=== PATIENT | male | born 1985 ===

== ENCOUNTER 2017-05-25 18:03 | Emergency (ER) | payer BC ==
[2017-05-25 18:16] VITALS: BP 100/57; PULSE 78; RESP 20; TEMP 102.1; O2SAT 100
--- NOTE | 2017-05-25 19:55 | ED PDOC ---
HPI: CCC, URI, Sore Throat Time Seen by Provider: 05/25/17 19:49 Chief Complaint (Nursing): ENT Problem History Per: Patient (Sore throat and fever since last night. Denies cough or SOB. Able to swallow) Onset/Duration Of Symptoms: Days (1) Current Symptoms Are (Timing): Still Present Location Of Pain: Throat Associated Symptoms: Fever, Sore Throat. denies: Cough Severity: Moderate Pain Scale Rating Of: 3 Past Medical History Vital Signs: Last Vital Signs Temp 102.1 F H 05/25/17 18:12 Pulse 78 05/25/17 18:12 Resp 20 05/25/17 18:12 BP 100/57 L 05/25/17 18:12 Pulse Ox 100 05/25/17 18:12 - Medical History PMH: No Chronic Diseases - Family History Family History: States: Unknown Family Hx - Immunization History Hx Tetanus Toxoid Vaccination: No Hx Influenza Vaccination: No Hx Pneumococcal Vaccination: No - Home Medications Home Medications: Ambulatory Orders Medication Instructions Recorded Amoxicillin/Clavulanate [Augmentin 1 tab PO BID #20 tab 10/22/16 875 MG-125 MG] Amoxicillin/Potassium Clav 1 tab PO TID #30 tab 05/25/17 [Augmentin 500 mg-125 mg] Naproxen [Naprosyn] 500 mg PO Q12H #20 tab 05/25/17 - Allergies Allergies/Adverse Reactions: Allergies Allergy/AdvReac Type Severity Reaction Status Date / Time No Known Allergies Allergy Verified 05/25/17 18:12 Review of Systems Constitutional: Positive for: Fever ENT: Positive for: Throat Pain Respiratory: Negative for: Cough, Shortness of Breath Physical Exam - Physical Exam Appears: Positive for: Non-toxic, No Acute Distress Skin: Positive for: Normal Color, Warm, DRY ENT: Positive for: Pharyngeal Erythema, Tonsillar Swelling. Negative for: Tonsillar Exudate Neck: Positive for: Normal, Painless ROM Cardiovascular/Chest: Positive for: Regular Rate, Rhythm Respiratory: Positive for: CNT, Normal Breath Sounds Neurologic/Psych: Positive for: Alert, Oriented. Negative for: Motor/Sensory Deficits - ECG O2 Sat by Pulse Oximetry: 100 Disposition - Clinical Impression Clinical Impression: Tonsillitis - Patient ED Disposition Is Patient to be Admitted: No Counseled Patient/Family Regarding: Studies Performed, Diagnosis, Need For Followup, Rx Given - [facility] Disposition: Routine/Home Disposition Time: 19:54 Condition: FAIR Prescriptions: Amoxicillin/Potassium Clav [Augmentin 500 mg-125 mg] 1 tab PO TID #30 tab Naproxen [Naprosyn] 500 mg PO Q12H #20 tab Instructions: Tonsillitis (ED) Print Language: ROMANSH
== END 2017-05-25 20:20 | disposition home or self-care (01) ==
LOC: H.ER 18:03
DX: J03.90 Acute tonsillitis, unspecified (principal); R50.9 Fever, unspecified

== ENCOUNTER 2017-12-13 07:31 | Emergency (ER) | payer BC ==
[2017-12-13 07:51] VITALS: BP 103/65; PULSE 60; RESP 16; TEMP 98.9; O2SAT 98
[2017-12-13 07:52] VITALS: BMI 21.9
--- NOTE | 2017-12-13 08:25 | ED PDOC ---
HPI: Eye Injury/Pain Time Seen by Provider: 12/13/17 08:02 Chief Complaint (Nursing): Eye Problem History Per: Patient (here because of swelling of the left upper eyelid for 2 days. itching but no fever or drainage. No vision change. ) History/Exam Limitations: no limitations Past Medical History Reviewed: Historical Data, Nursing Documentation, Vital Signs Vital Signs: Last Vital Signs Temp 98.9 F 12/13/17 07:50 Pulse 60 12/13/17 07:50 Resp 16 12/13/17 07:50 BP 103/65 12/13/17 07:50 Pulse Ox 98 12/13/17 07:50 - Medical History PMH: No Chronic Diseases - Surgical History Surgical History: No Surg Hx - Family History Family History: States: Unknown Family Hx - Living Arrangements Living Arrangements: With Family - Immunization History Hx Tetanus Toxoid Vaccination: No Hx Influenza Vaccination: No Hx Pneumococcal Vaccination: No - Home Medications Home Medications: Ambulatory Orders Medication Instructions Recorded Amoxicillin/Clavulanate [Augmentin 1 tab PO BID #20 tab 10/22/16 875 MG-125 MG] Amoxicillin/Potassium Clav 1 tab PO TID #30 tab 05/25/17 [Augmentin 500 mg-125 mg] Naproxen [Naprosyn] 500 mg PO Q12H #20 tab 05/25/17 Ofloxacin [Floxin] 5 ml OS QID #5 drops 12/13/17 - Allergies Allergies/Adverse Reactions: Allergies Allergy/AdvReac Type Severity Reaction Status Date / Time No Known Allergies Allergy Verified 05/25/17 18:12 Review of Systems ROS Statement: Except As Marked, All Systems Reviewed And Found Negative Eyes: Positive for: Eyelid Inflammation. Negative for: Pain, Vision Change, Conjunctivae Inflammation ENT: Negative for: Ear Pain, Nose Pain Physical Exam - Reviewed Nursing Documentation Reviewed: Yes Vital Signs Reviewed: Yes - Physical Exam Appears: Positive for: Well, Non-toxic, No Acute Distress Head Exam: Positive for: ATRAUMATIC, NORMAL INSPECTION, NORMOCEPHALIC Skin: Positive for: Normal Color, Warm, DRY Eye Exam: Positive for: Normal appearance, EOMI (no diplopia), PERRL, Other ( left upper lid induration). Negative for: Conjunctival injection ENT: Positive for: Normal ENT Inspection Neck: Positive for: Normal, Painless ROM Cardiovascular/Chest: Positive for: Regular Rate, Rhythm Respiratory: Positive for: CNT, Normal Breath Sounds Gastrointestinal/Abdominal: Positive for: Normal Exam, Bowel Sounds, Soft Back: Positive for: Normal Inspection Extremity: Positive for: Normal ROM Neurologic/Psych: Positive for: Alert, Oriented - ECG O2 Sat by Pulse Oximetry: 98 Disposition - Clinical Impression Clinical Impression: Stye - Patient ED Disposition Is Patient to be Admitted: No Doctor Will See Patient In The: Office Counseled Patient/Family Regarding: Diagnosis, Need For Followup, Rx Given - Disposition Referrals: [facility] [Outside] Disposition: Routine/Home Disposition Time: 08:10 Condition: STABLE Prescriptions: Ofloxacin [Floxin] 5 ml OS QID #5 drops Instructions: Ste[place] (ED) Forms: Indira Case (Citizen [place]), [facility] ED School/Work Excuse - POA Present On Arrival: None
== END 2017-12-13 09:32 | disposition home or self-care (01) ==
LOC: H.ER 07:31
DX: H00.016 Hordeolum externum left eye, unspecified eyelid (principal)

== ENCOUNTER 2018-03-31 09:06 | Emergency (ER) | payer BC ==
[2018-03-31 09:08] VITALS: BMI 21.8
[2018-03-31 09:10] VITALS: BP 108/69; PULSE 65; RESP 16; TEMP 98.1; O2SAT 98
--- NOTE | 2018-03-31 09:44 | ED PDOC ---
HPI: Eye Injury/Pain Time Seen by Provider: 03/31/18 09:18 Chief Complaint (Nursing): ENT Problem Chief Complaint (Provider): Eye Infection History Per: Patient History/Exam Limitations: no limitations Onset/Duration Of Symptoms: Days (x5 days) Current Symptoms Are (Timing): Still Present Injury To Eye?: No Additional Complaint(s): 32 y/o male presents to the ED with right irritation. Patient he noticed 5 days ago that his right eye was crusted over in the morning associated with redness and yellow drainage. He denies any change in vision or pain. Of note, he also complains of a sore throat. PMD: none provided Past Medical History Reviewed: Historical Data, Nursing Documentation, Vital Signs Vital Signs: Last Vital Signs Temp 98.1 F 03/31/18 09:08 Pulse 65 03/31/18 09:08 Resp 16 03/31/18 09:08 BP 108/69 03/31/18 09:08 Pulse Ox 98 03/31/18 09:08 - Medical History PMH: No Chronic Diseases - Surgical History Surgical History: No Surg Hx - Family History Family History: States: Unknown Family Hx - Immunization History Hx Tetanus Toxoid Vaccination: No Hx Influenza Vaccination: No Hx Pneumococcal Vaccination: No - Home Medications Home Medications: Ambulatory Orders Medication Instructions Recorded Azithromycin [Zithromax] 250 mg PO DAILY #6 tab 03/31/18 Tobramycin 0.3% [Tobramycin 5 Ml] 1 drop OP TID #1 bottle 03/31/18 - Allergies Allergies/Adverse Reactions: Allergies Allergy/AdvReac Type Severity Reaction Status Date / Time No Known Allergies Allergy Verified 03/31/18 09:18 Review of Systems ROS Statement: Except As Marked, All Systems Reviewed And Found Negative Eyes: Positive for: Redness, Other (crusting of the right eye with yellow drainage). Negative for: Pain, Vision Change ENT: Positive for: Throat Pain Physical Exam - Reviewed Nursing Documentation Reviewed: Yes Vital Signs Reviewed: Yes - Physical Exam Appears: Positive for: Well, Non-toxic, No Acute Distress Head Exam: Positive for: ATRAUMATIC, NORMAL INSPECTION, NORMOCEPHALIC Skin: Positive for: Normal Color, Warm, Dry Eye Exam: Positive for: EOMI, PERRL, Conjunctival injection (right eye). Negative for: Other (no foreign body) ENT: Positive for: Normal ENT Inspection. Negative for: Pharyngeal Erythema, Tonsillar Exudate, Tonsillar Swelling Neurologic/Psych: Positive for: Alert, Oriented (x3) - ECG O2 Sat by Pulse Oximetry: 98 (RA) Pulse Ox Interpretation: Normal Medical Decision Making Medical Decision Making: Time: 09:08 Scribe Attestation: Documented by Tanja Llanos acting as a scribe for Eloisa Guevara MD. Scribe Attestation: All medical record entries made by the Scribe were at my direction and personally dictated by me. I have reviewed the chart and agree that the record accurately reflects my personal performance of the history, physical exam, medical decision making, and the department course for this patient. I have also personally directed, reviewed, and agree with the discharge instructions and disposition. Disposition - Clinical Impression Clinical Impression: Pharyngitis, Conjunctivitis - Disposition Referrals: Isacc Huston MD [Staff Provider] - Disposition: Routine/Home Disposition Time: 09:35 Condition: FAIR Prescriptions: Azithromycin [Zithromax] 250 mg PO DAILY #6 tab Tobramycin 0.3% [Tobramycin 5 Ml] 1 drop OP TID #1 bottle Instructions: Sore Throat in Adults, Conjunctivitis ([place]) Forms: [employer] ([place])
== END 2018-03-31 09:44 | disposition home or self-care (01) ==
LOC: H.ER 09:06
DX: H10.9 Unspecified conjunctivitis (principal); J02.9 Acute pharyngitis, unspecified

== ENCOUNTER 2018-10-31 11:58 | Emergency (ER) | payer BC ==
[2018-10-31 12:05] VITALS: BP 106/59; PULSE 66; RESP 16; TEMP 99.1; O2SAT 100
--- NOTE | 2018-10-31 13:24 | ED PDOC ---
HPI: Skin/Bite Injury Time Seen by Provider: 10/31/18 12:31 Chief Complaint (Nursing): Abdominal Pain Chief Complaint (Provider): Rectal Pain History Per: Patient History/Exam Limitations: no limitations Onset/Duration Of Symptoms: Worse Since (yesterday) Additional Complaint(s): 33 y/o male presents to ER for evaluation of worsening pain in rectum onset yesterday. Patient states he had hemorrhoidectomy last in [facility] done by Dr. Figueroa and reports he developed pain yesterday in rectal area. He states he was seen in [facility] ED and was advised to take lidocaine jelly, but pain became worse. Patient states this morning he noticed a small cortical pimple on rectum. He denies any fever, bleeding, constipation, abdominal pain or chills. PMD: non provided Past Medical History Reviewed: Historical Data, Nursing Documentation, Vital Signs Vital Signs: Last Vital Signs Temp 99.1 F 10/31/18 12:04 Pulse 66 10/31/18 12:04 Resp 16 10/31/18 12:04 BP 106/59 L 10/31/18 12:04 Pulse Ox 100 10/31/18 12:04 DARRON Report Viewed: Yes - Medical History PMH: No Chronic Diseases - Surgical History Other surgeries: hemorrhoidectomy - Family History Family History: States: Unknown Family Hx - Social History Current smoker - smoking cessation education provided: No Alcohol: None Drugs: Denies - Immunization History Hx Tetanus Toxoid Vaccination: No Hx Influenza Vaccination: No Hx Pneumococcal Vaccination: No - Home Medications Home Medications: Ambulatory Orders Medication Instructions Recorded Azithromycin [Zithromax] 250 mg PO DAILY #6 tab 03/31/18 Tobramycin 0.3% [Tobramycin 5 Ml] 1 drop OP TID #1 bottle 03/31/18 - Allergies Allergies/Adverse Reactions: Allergies Allergy/AdvReac Type Severity Reaction Status Date / Time No Known Allergies Allergy Verified 03/31/18 09:18 Review of Systems ROS Statement: Except As Marked, All Systems Reviewed And Found Negative Constitutional: Negative for: Fever, Chills Gastrointestinal: Positive for: Rectal Pain. Negative for: Abdominal Pain, Constipation Skin: Positive for: Other (Small cortical pimple on rectum) Physical Exam - Reviewed Nursing Documentation Reviewed: Yes Vital Signs Reviewed: Yes - Physical Exam Appears: Positive for: In Acute Distress (moderate painful) Skin: Positive for: Normal Color, Warm, Dry Gastrointestinal/Abdominal: Positive for: Normal Exam, Soft. Negative for: Tenderness Rectal: Positive for: Other (Small fluctuant tender papule going into rectum. No bleeding.) Neurologic/Psych: Positive for: Alert, Oriented (x3) - Laboratory Results Result Diagrams: 10/31/18 13:47 10/31/18 13:47 - ECG O2 Sat by Pulse Oximetry: 100 (RA) Pulse Ox Interpretation: Normal Medical Decision Making Medical Decision Making: Time: 1258 Initial Plan: --CMP --CBC --NPO --Toradol 15 mg IVP [address] Bo Schafer, who is covering for Dr. Figueroa, and agrees with plan to give Toradol and keep NPO. Dr. Schafer will evaluate patient on bedside and advised to hold off on CT. Patient reports his last PO intake was at 11 am today. [address] Fleming, surgery resident, in ED. 144 Dr. Fleming spoke with Dr. Figueroa who requests that pt. continue Lidocaine Jelly and Percocet. He will be evaluated by Dr. Figueroa in the office tomorrow. Dr. Figueroa does not want a CT to be done at this time. States that elevated WBC is likely reactive and no antibiotic should be prescribed. Pt. informed of results and plan. Agrees and verbalized understanding of necessary f/u with Dr. Figueroa tomorrow. Scribe Attestation: Documented by Joanne Patel, acting as a scribe for DAVION Rizzo. Provider Scribe Attestation: All medical record entries made by the Scribe were at my direction and personally dictated by me. I have reviewed the chart and agree that the record accurately reflects my personal performance of the history, physical exam, medical decision making, and the department course for this patient. I have also personally directed, reviewed, and agree with the discharge instructions and disposition. Disposition - Clinical Impression Clinical Impression: Status post hemorrhoidectomy - Patient ED Disposition Is Patient to be Admitted: No - Disposition Referrals: Edgar Figueroa MD [Staff Provider] - Disposition: Routine/Home Disposition Time: 14:47 Condition: IMPROVED Additional Instructions: FOLLOW UP WITH DR. FIGUEROA TOMORROW WITHOUT FAIL RETURN TO ED IMMEDIATELY IF SYMPTOMS WORSEN DAWIT RODRÍGUEZ, thank you for letting us take care of you today. Your provider was Keron Hercules MD and you were treated for LT LEG PAIN. The emergency medical care you received today was directed at your acute symptoms. If you were prescribed any medication, please fill it and take as directed. It may take several days for your symptoms to resolve. Return to the Emergency Department if your symptoms worsen, do not improve, or if you have any other problems. Please contact your doctor or call one of the physicians/clinics you have been referred to that are listed on the Patient Visit Information form that is included in your discharge packet. Bring any paperwork you were given at discharge with you along with any medications you are taking to your follow up visit. Our treatment cannot replace ongoing medical care by a primary care provider outside of the emergency department. Thank you for allowing the [facility] team to be part of your care today. If you had an X-Ray or CT scan: A Radiologist will review the ED reading if any change in treatment is needed we will contact you. If you had a blood, urine, or wound culture: It will take several days for the results, if any change in treatment is needed we will contact you. If you had an STI test: It will take 48 hours for the results. Please call after 1 week if you have not heard back. Instructions: Hemorrhoidectomy (DC) Forms: [employer] (Amharic) Print Language: NIGERIEN
[2018-10-31] MEDS: Sodium Chloride 0.9% 1,000 ML IV STA (13:28)
[2018-10-31 13:54] LABS: BASO % 0.4 % (0.0-2.0); EOS # 0.1 K/uL (0.0-0.7); EOS % 0.5 % (0.0-4.0); HEMOGLOBIN 14.1 g/dL (12.0-18.0); LYMPH # 1.5 K/uL (1.0-4.3); LYMPH % 10.5 % (20.0-40.0); MEAN CELL VOLUME 89.3 fl (80.0-94.0); MEAN CORPUSCULAR HEMOGLOBIN 29.9 pg (27.0-31.0); MEAN CORPUSCULAR HGB CONC 33.4 g/dL (33.0-37.0); MEAN PLATELET VOLUME 8.8 fl (7.2-11.7); MONO # 1.1 K/uL (0.0-0.8); MONO % 7.6 % (0.0-10.0); NEUT # 11.4 K/uL (1.8-7.0); RBC 4.71 Mil/uL (4.40-5.90); RED CELL DISTRIBUTION WIDTH 13.5 % (11.5-14.5); WHITE BLOOD COUNT 14.1 K/uL (4.8-10.8)
[2018-10-31 14:02] LABS: ALB/GLOB RATIO 1.2 (1.0-2.1); ALBUMIN 4.4 g/dL (3.5-5.0); ALT/SGPT 63 U/L (21-72); AST/SGOT 46 U/L (17-59); BLOOD UREA NITROGEN 13 mg/dl (9-20); CALCIUM 9.2 mg/dL (8.4-10.2); GFR NON-AFRICAN AMERICAN > 60
== END 2018-10-31 15:14 | disposition home or self-care (01) ==
LOC: SUPCPDRO 11:58 → H.ER 11:58
DX: G89.18 Other acute postprocedural pain (principal)
CPT/HCPCS: 80053; 85025; 96374; 99282; J1885; J7030